=== PATIENT | male | born 2000 | race Caucasian/White ===

== ENCOUNTER 2019-06-02 17:27 | Emergency (ER) | payer BC, SELFPAY ==
[2019-06-02 17:28] VITALS: BP 140/83; PULSE 88; RESP 16; TEMP 36.7; O2SAT 99; BMI 23.2
--- NOTE | 2019-06-02 18:00 | RAD_ITS ---
STUDY: X-RAY - LEFT CALCANEUS REASON FOR EXAM: Male, 18 years old. Heel pain, injury. TECHNIQUE: 2 view(s) of the calcaneus were obtained. COMPARISON: None. FINDINGS: No fracture or dislocation. Joint spaces are well-maintained. Soft tissues and bony structures are unremarkable. RAD/Calcaneus min 2 Views IMPRESSION: Normal x-ray examination of the calcaneus. Electronically Signed: Sara Castañeda MD at 18:49 EDT Tel , Service support ,
--- NOTE | 2019-06-02 18:00 | RAD_ITS ---
STUDY: X-RAY - LEFT FOOT CLINICAL: Male, 18 years old. Fell and injured heel TECHNIQUE: 3 view(s) of the foot. COMPARISON: None. FINDINGS: Normal talus, calcaneus, and tarsal bones. Normal visualized subtalar, talonavicular, calcaneocuboid, tarsal and tarsometatarsal articulations. Normal metatarsi. Normal metatarsophalangeal joint of the great toe. Normal tibial and fibular sesamoid bones. Normal interphalangeal joint of the great toe. Normal phalanges of the great toe. Normal second through fifth metatarsophalangeal joints. Normal interphalangeal joints and phalanges of the lesser toes. The soft tissue structures are unremarkable. RAD/Foot min 3 Views IMPRESSION: Normal x-ray examination of the foot. Electronically Signed: West Jhaveri MD at 19:58 EDT , Service support ,
--- NOTE | 2019-06-02 18:01 | ED.DCSUM_ITS ---
- ER Visit Summary Date of Service: 06/02/19 Chief Complaint: Left foot pain History of Present Illness: The patient is a 18 M presenting with left foot pain. Patient states approximately a week ago he jumped over 3 foot wall. He states he landed on his feet. He states he came down hard on his left foot. He did not fall to the ground. He has had persistent pain in his left heel since. He has been able to ambulate with pain. He has tried ibuprofen at home. He denies other injuries. Physical Examination: Vitals are stable. Patient is afebrile. Alert no acute distress. HEENT exam is unremarkable. Neck is supple. Lungs are clear and equal bilaterally. Heart is regular rate and rhythm. Extremities tenderness left heel. No Achilles tendon tenderness. Agustin test negative. Normal pulses. Skin is warm and dry. Remainder of exam is unremarkable. Emergency Department Course and Treatment: Left foot, calcaneus, ankle xray show no acute process. Patient was given a postop shoe. Advised to ice and elevate. He is given prescription for Naprosyn. Advised return to ED for worsening complaints. Disposition: Discharged home Impression: Left foot injury This note was generated with [employer] dictation software. It may contain incorrect words, spelling, and punctuation that were not noted in review of the chart prior to signing
--- NOTE | 2019-06-02 18:15 | RAD_ITS ---
STUDY: X-RAY - LEFT ANKLE REASON FOR EXAM: Male, 18 years old. Trauma. Pain. TECHNIQUE: 3 view(s) of the ankle. COMPARISON: None. FINDINGS: Normal visualized distal tibia and fibula. Normal medial and lateral malleoli. Normal tibiotalar articulation and ankle mortise. Normal visualized talus and calcaneus. The visualized subtalar, talonavicular, calcaneocuboid and tarsal articulations are normal. There is no demonstrated fracture. The soft tissue structures are unremarkable. RAD/Ankle min 3 Views IMPRESSION: Normal x-ray examination of the ankle. Electronically Signed: Anup Navarro MD at 18:42 EDT , Service support ,
--- NOTE | 2019-06-02 20:06 | ED.DEP ---
ED Disposition - Plan for ED Patient: Instructions: CONTUSION, Foot Prescriptions: Naproxen [Naprosyn] 500 mg PO BID PRN #20 tablet Referrals: Oswald Meng MD [NON-STAFF] -
[2019-06-02 20:27] VITALS: RESP 14
== END 2019-06-02 20:27 | disposition home or self-care (01) ==
LOC: ED 18:10
PROVIDERS: Emergency Provider Emergency Medicine
DX: S99.922A Unspecified injury of left foot, initial encounter (principal); X50.0XXA Overexertion from strenuous movement or load, initial encounter; Y93.39 Activity, other involving climbing, rappelling and jumping off; Y92.89 Other specified places as the place of occurrence of the external cause; Y99.8 Other external cause status
CPT/HCPCS: 73610; 73630; 73650; 99283